=== PATIENT | male | born 1950 | race Two or more races ===

== ENCOUNTER 2016-03-21 10:31 | Day surgery (SDC) | payer OTHER ==
[2016-03-20 13:11] VITALS: BMI 27.3
--- NOTE | 2016-03-21 06:28 | HP ---
History & Physical Update - History History: No Change - Physical Physical: No Change - Assessment Assessment: No Change - Plan Plan: No Change
[~2016-03-21 10:31] MED LIST: BUPIVACAINE HCL/PF 0.75% 10 ML VIAL PNB ONE; CHONDROITIN SU A/HYALUR SOD 1 KIT IO ONE; CYCLOPENTOLATE HCL 1% OPHTH SOLN 2 ML BOTTLE OP SCH; LIDOCAINE HCL 1% PRESERVATIVE FREE - 30ML VIAL IO ONE; LIDOCAINE HCL/PF 2% SDV 5ML VIAL PNB ONE; MOXIFLOXACIN HCL 0.5% OPHTHALMIC 3 ML BOTTLE OP SCH; PHENYLEPHRINE 2.5% OPHTH SOLN 15 ML BOTTLE OP SCH; TOBRAMYCIN/DEXAMETHASONE OPHTH. OINTMENT 1 TUBE TP ONE; TROPICAMIDE 1% OPHTH SOLN 15 ML BOTTLE OP SCH
[2016-03-21] MEDS: CYCLOPENTOLATE HCL 1% OPHTH SOLN 2 ML BOTTLE ONE ×3 (11:00→11:20)
[2016-03-21] MEDS: MOXIFLOXACIN HCL 0.5% OPHTHALMIC 3 ML BOTTLE ONE ×3 (11:00→11:20)
[2016-03-21] MEDS: TROPICAMIDE 1% OPHTH SOLN 15 ML BOTTLE ONE ×3 (11:00→11:20)
[2016-03-21] MEDS: PHENYLEPHRINE 2.5% OPHTH SOLN 15 ML BOTTLE ONE ×3 (11:00→11:20)
[2016-03-21 11:16] VITALS: TEMP 98.5
[2016-03-21] MEDS ORDERED: TRYPAN BLUE 0.5 ML DISP.SYRIN ONE (11:40)
[2016-03-21] MEDS ORDERED: TETRACAINE 0.5% OPHTH SOLN 2 ML BOTTLE OS ONE (11:42)
[2016-03-21] MEDS ORDERED: PROPOFOL 20 ML ONE (11:44)
[2016-03-21] MEDS ORDERED: LIDOCAINE HCL/PF 2% SDV 5ML VIAL ONE (11:44)
[2016-03-21] MEDS ORDERED: LIDOCAINE HCL/PF 2% SDV 5ML VIAL PNB ONE (11:45)
[2016-03-21] MEDS ORDERED: BUPIVACAINE HCL/PF 0.75% 10 ML VIAL PNB ONE (11:45)
[2016-03-21] MEDS ORDERED: LIDOCAINE HCL/PF 1% SDV 5ML VIAL ONE (11:46)
[2016-03-21] MEDS ORDERED: POVIDONE-IODINE 5% OPHTHALMIC PREP 30 ML SOLUTION OS ONE (11:48)
[2016-03-21] MEDS ORDERED: TRYPAN BLUE 0.5 ML DISP.SYRIN IO ONE (11:55)
[2016-03-21] MEDS ORDERED: CHONDROITIN SU A/HYALUR SOD 1 KIT IO ONE (11:55)
[2016-03-21] MEDS ORDERED: BSS (NA/CA/MG/K) BALANCED SALT SOLUTION OPHTH SOLN 15 ML BOTTLE OS ONE (11:55)
[2016-03-21] MEDS ORDERED: EPINEPHrine/PF 1 MG/1 ML (1:1,000) AMPULE SQ ONE (11:55)
[2016-03-21] MEDS ORDERED: LIDOCAINE HCL 1% PRESERVATIVE FREE - 30ML VIAL IO ONE (11:55)
[2016-03-21] MEDS ORDERED: TOBRAMYCIN/DEXAMETHASONE OPHTH. OINTMENT 1 TUBE TP ONE (12:30)
[2016-03-21 14:01] VITALS: BP 144/76; PULSE 78
--- NOTE | 2016-03-22 11:12 | OP ---
DATE OF OPERATION: 03/21/2016 SURGEON: Gurpreet Harris MD PREOPERATIVE DIAGNOSIS: Cataract, left eye. OPERATION: Phacoemulsification and intraocular lens implantation, left eye. POSTOPERATIVE DIAGNOSIS: Cataract, left eye. ANESTHESIA: Local with intravenous sedation. COMPLICATIONS: None. BLOOD LOSS: None. SPECIMEN: None. BRIEF HISTORY: The patient is a 65-year-old man with a past medical history of diabetes, who presented with decreased vision in the left eye down to 20/40, -2 , due to a 2+ nuclear sclerotic lens with anterior cortical changes. After the risks, benefits, and alternatives to cataract surgery were discussed with the patient, he consented to surgery for the left eye. DESCRIPTION OF PROCEDURE: The patient was brought to the operating room and administered retrobulbar block after receiving intravenous sedation. He was then prepped and draped in the usual sterile fashion, and an eyelid speculum was inserted in the left eye. A paracentesis was made, and the anterior chamber was inflated with nonpreserved lidocaine. This was followed by injection of air, trypan blue dye , and Viscoat. Due to the poorly dilating pupil down to 4 mm, 4 iris hooks were placed in order to enlarge and stabilize the iris. A groove was made in the superotemporal clear cornea which was tunneled forward with a crescent blade. The anterior chamber was entered with a 2.75 keratome. The cystotome was used to make an incision in the center of the capsule, and a continuous curvilinear capsulorrhexis was created. The lens was hydrodissected until it was found to rotate freely within the capsular bag. Phacoemulsification was then used to remove the lens in its entirety. Irrigation and aspiration were used to remove residual cortical material. The anterior chamber and capsular bag were reinflated with Provisc, and a 22.0-diopter SN60WF AcrySof intraocular lens was injected into the capsular bag using the [place] injector. The lens was dialed into place using a Sins[place] hook. Irrigation and aspiration were used to remove residual cortical material including some subincisional cortex. The wound was stromally hydrated until it was found to be watertight and the eye was at an appropriate pressure. The eyelid speculum was removed from the eye, and TobraDex ointment and a patch and shield were placed over the left eye. The patient was transferred to the recovery room in stable condition and will follow up tomorrow. Amrit [id number] MTDD
== END 2016-03-21 14:00 | disposition home or self-care (01) ==
LOC: JASU-SURG 10:31
PROVIDERS: ATTEND Ophthalmology
PROC: 08RK3JZ Replacement of Left Lens with Synthetic Substitute, Percutaneous Approach (ICD-10-PCS; principal; 2016-03-21 11:30)
DX: H25.12 Age-related nuclear cataract, left eye (principal)